=== PATIENT | male | born 1965 ===

== ENCOUNTER → 2019-04-07 13:25 | Outpatient (CLI) | payer OTHER, SELFPAY | PROVIDERS: Visit Provider Physician Assistant | DX: L72.0 Epidermal cyst (principal) | CPT/HCPCS: 87070; 87205 ==

== ENCOUNTER → 2021-11-27 14:26 | Outpatient (CLI) | payer OTHER, SELFPAY ==
--- NOTE | 2021-11-27 14:27 | DI.RAD.S_ITS ---
PROCEDURE: XR LUMBAR SPINE MIN 4V INDICATIONS: Low back pain TECHNIQUE: 5 views of the lumbar spine were acquired, including bilateral oblique views. COMPARISON: None. FINDINGS: Bones: 5 nonrib-bearing vertebrae are present. No significant curvature of the lumbar spine. No significant listhesis. Mild multilevel disc height loss and endplate spurring. Facet degenerative changes present at the lower lumbar spine. No vertebral body compression fractures. No suspicious bony lesions. Soft tissues: Overlying bowel gas pattern is normal. No suspicious soft tissue calcifications. Oblique images: No pars defects. IMPRESSION: Mild multilevel lumbar spine degenerative changes. Dictated by: Armando Doran M.D. on 11/27/2021 at 16:46 Approved by: Armando Doran M.D. on 11/27/2021 at 16:50
== END ==
PROVIDERS: Referring Provider Nurse Practitioner Family; Visit Provider Nurse Practitioner Family
DX: S39.012A Strain of muscle, fascia and tendon of lower back, initial encounter (principal); M47.816 Spondylosis without myelopathy or radiculopathy, lumbar region
CPT/HCPCS: 72110